=== PATIENT | male | born 2000 | race Hispanic/Latino ===

== ENCOUNTER 2025-06-27 17:32 | Emergency (ER) | payer MEDICARE, MEDICAID ==
[~2025-06-27] VITALS: Ht 170.2 cm; Wt 97.1 kg
[2025-06-27 17:40] VITALS: TEMP 97.5
[2025-06-27 18:30] VITALS: PULSE 80; RESP 28
[2025-06-27 18:33] LABS: BASOPHILS % 0.5 % (0.0-1.0); EOSINOPHILS % 0.1 % (0.0-6.0); LYMPHOCYTES % 17.7 % (18.0-39.1); MONOCYTES % 6.6 % (4.4-11.3); NEUTROPHILS % 74.6 % (38.7-80.0); RED CELL DISTRIBUTION WIDTH 12.1 % (11.7-14.4)
[2025-06-27] MEDS: LEVETIRACETAM 1000MG/100ML IV 100 ML IV ONE (18:39)
[2025-06-27 18:44] LABS: EST GLOMERULAR FILTRATION RATE 110.0 ML/MIN (>=60)
[2025-06-27 19:55] VITALS: BP_DIAS 145; O2SAT 99
== END 2025-06-27 19:56 | disposition home or self-care (01) ==
LOC: ER 18:22
DX: G40.909 Epilepsy, unspecified, not intractable, without status epilepticus (principal); R05.3 Chronic cough; F84.0 Autistic disorder; F41.9 Anxiety disorder, unspecified
CPT/HCPCS: 36415; 80053; 83735; 85025; 93005; 99284